=== PATIENT | male | born 1975 | race Native Hawaiian/Other Pacific Islander ===

== ENCOUNTER 2017-07-26 22:23 | Inpatient (IN) | payer OTHER ==
[2017-07-26 23:33] LABS: Hematocrit 43.2 % (35.5-45.6); Hemoglobin 14.7 gm/dl (11.8-15.2); Mean Corpuscular HGB Conc 34 % (32-34); Mean Corpuscular Hemoglobin 30 pg (28-32); Mean Corpuscular Volume 88 fl (84-94); Platelet Count 210 K/mm3 (140-440); Red Blood Count 4.89 M/mm3 (3.65-5.03); Red Cell Distribution Width 12.3 % (13.2-15.2); White Blood Count 13.9 K/mm3 (4.5-11.0)
[2017-07-26 23:48] LABS: Anion Gap 20 mmol/L; BUN/Creatinine Ratio 23; Blood Urea Nitrogen 21 mg/dL (9-20); Calcium 9.1 mg/dL (8.4-10.2); Carbon Dioxide 23 mmol/L (22-30); Chloride 98.8 mmol/L (98-107); Glucose 128 mg/dL (75-100); Potassium 3.9 mmol/L (3.6-5.0); Sodium 138 mmol/L (137-145)
[2017-07-27 01:51] LABS: Basophils % (Manual) 0 % (0.0-1.8); Blastocytes % (Manual) 0 %; Eosinophils % (Manual) 0 % (0.0-4.3)
[2017-07-27 01:52] LABS: Anisocytosis Few; Diff Status Complete
--- NOTE | 2017-07-27 09:35 | Emergency Department Report ---
ED Chest Pain HPI - General Chief Complaint: Chest Pain Stated Complaint: CHEST PAIN Time Seen by Provider: 07/27/17 08:44 Source: patient Mode of arrival: Ambulatory Limitations: No Limitations - History of Present Illness Initial Comments: 42-year-old male presents emergency Department with complaint of chest pain. Patient started having chest pressure yesterday radiated to his left shoulder and he was short of breath with chest pain. He has had pain like this once before. Hisfamily history of MA. He has no other medical problems. He does not smoke and not use any illicit drugs. -: Sudden Onset: during rest, during exertion Pain Location: substernal Pain Radiation: LUE Severity: severe Severity scale (0 -10): 7 Quality: tightness Improves With: nothing Worsens With: nothing re: dyspnea. denies: nausea, vomting, diaphoresis, sense of impending doom Other Symptoms: denies: cough, fever, syncope, rash, acid taste in mouth, leg swelling, palpitations, burping - Related Data Home Medications Medication Instructions Recorded Confirmed Last Taken No Known Home Medications [No 07/27/17 07/27/17 Unknown Reported Home Medications] Allergies Allergy/AdvReac Type Severity Reaction Status Date / Time No Known Allergies Allergy Unverified 07/26/17 22:39 Heart Score - HEART Score History: Highly suspicious EKG: Non-specific Age: < 45 Risk factors: No known risk factors Troponin: < normal limit HEART Score: 3 - Critical Actions Critical Actions: 0-3 pts:0.9-1.7%risk of adverse cardiac event.Candidate for discharge ED Review of Systems ROS: Stated complaint: CHEST PAIN Other details as noted in HPI Comment: All other systems reviewed and negative Constitutional: denies: chills, fever ENT: denies: ear pain, throat pain Respiratory: denies: cough, shortness of breath, wheezing Cardiovascular: denies: chest pain, palpitations Endocrine: no symptoms reported Gastrointestinal: denies: abdominal pain, nausea, diarrhea Genitourinary: denies: urgency, dysuria Musculoskeletal: denies: back pain, joint swelling, arthralgia Skin: denies: rash, lesions Neurological: denies: headache, weakness, paresthesias Psychiatric: denies: anxiety, depression Hematological/Lymphatic: denies: easy bleeding, easy bruising ED Past Medical Hx - Past Medical History Previous Medical History?: No - Surgical History Past Surgical History?: No - Family History Family history: no significant - Social History Smoking Status: Never Smoker Substance Use Type: Alcohol - Medications Home Medications: Home Medications Medication Instructions Recorded Confirmed Last Taken Type No Known Home Medications [No 07/27/17 07/27/17 Unknown History Reported Home Medications] ED Physical Exam - General Limitations: No Limitations General appearance: alert, in no apparent distress - Head Head exam: Present: atraumatic, normocephalic - Eye Eye exam: Present: normal appearance. Absent: scleral icterus, conjunctival injection - ENT ENT exam: Present: mucous membranes moist - Neck Neck exam: Absent: meningismus, lymphadenopathy - Respiratory Respiratory exam: Present: normal lung sounds bilaterally. Absent: respiratory distress, wheezes - Cardiovascular Cardiovascular Exam: Present: regular rate, normal rhythm, normal heart sounds. Absent: systolic murmur, diastolic murmur, rubs, gallop - GI/Abdominal GI/Abdominal exam: Present: soft, normal bowel sounds. Absent: distended, tenderness - Rectal Rectal exam: Present: deferred - Extremities Exam Extremities exam: Present: normal inspection - Back Exam Back exam: Present: normal inspection - Neurological Exam Neurological exam: Present: alert, oriented X3 - Psychiatric Psychiatric exam: Present: normal affect, normal mood - Skin Skin exam: Present: warm, dry, intact, normal color. Absent: rash ED Course Vital Signs 07/26/17 07/27/17 07/27/17 22:33 05:24 08:52 Temperature 98.6 F 98.1 F 98.7 F Pulse Rate 117 H 68 66 Respiratory 18 17 Rate Blood Pressure 143/75 130/72 Blood Pressure 139/72 [Left] O2 Sat by Pulse 99 98 98 Oximetry 07/27/17 08:56 Temperature Pulse Rate Respiratory 17 Rate Blood Pressure Blood Pressure [Left] O2 Sat by Pulse 99 Oximetry ED Medical Decision Making - Lab Data Result diagrams: 07/26/17 23:18 07/26/17 23:18 Laboratory Results - last 24 hr 07/26/17 07/26/17 07/27/17 23:18 23:18 02:22 WBC 13.9 H RBC 4.89 Hgb 14.7 Hct 43.2 MCV 88 MCH 30 MCHC 34 RDW 12.3 L Plt Count 210 Add Manual Diff Complete Total Counted 100 Seg Neuts % (Manual) 75.0 H Band Neutrophils % 0 Lymphocytes % (Manual) 13.0 L Reactive Lymphs % (Man) 0 Monocytes % (Manual) 12.0 H Eosinophils % (Manual) 0 Basophils % (Manual) 0 Metamyelocytes % 0 Myelocytes % 0 Promyelocytes % 0 Blast Cells % 0 Nucleated RBC % Not Reportable Seg Neutrophils # Man 10.4 H Band Neutrophils # 0.0 Lymphocytes # (Manual) 1.8 Abs React Lymphs (Man) 0.0 Monocytes # (Manual) 1.7 H Eosinophils # (Manual) 0.0 Basophils # (Manual) 0.0 Metamyelocytes # 0.0 Myelocytes # 0.0 Promyelocytes # 0.0 Blast Cells # 0.0 WBC Morphology Not Reportable Hypersegmented Neuts Not Reportable Hyposegmented Neuts Not Reportable Hypogranular Neuts Not Reportable Smudge Cells Not Reportable Toxic Granulation Not Reportable Toxic Vacuolation Not Reportable Dohle Bodies Not Reportable Pelger-Huet Anomaly Not Reportable Binh Rods Not Reportable Platelet Estimate Appears normal Clumped Platelets Not Reportable Plt Clumps, EDTA Not Reportable Large Platelets Not Reportable Giant Platelets Not Reportable Platelet Satelliting Not Reportable Plt Morphology Comment Not Reportable RBC Morphology Not Reportable Dimorphic RBCs Not Reportable Polychromasia Not Reportable Hypochromasia Not Reportable Poikilocytosis Not Reportable Anisocytosis Few Microcytosis Not Reportable Macrocytosis Not Reportable Spherocytes Not Reportable Pappenheimer Bodies Not Reportable Sickle Cells Not Reportable Target Cells Not Reportable Tear Drop Cells Not Reportable Ovalocytes Not Reportable Helmet Cells Not Reportable Kc-[place] Bodies Not Reportable [place] Rings Not Reportable [place] Cells Not Reportable Bite Cells Not Reportable Crenated Cell Not Reportable Elliptocytes Not Reportable Acanthocytes (Spur) Not Reportable Rouleaux Not Reportable Hemoglobin C Crystals Not Reportable Schistocytes Not Reportable Malaria parasites Not Reportable Hector Bodies Not Reportable Hem Pathologist Commnt No Sodium 138 Potassium 3.9 Chloride 98.8 Carbon Dioxide 23 Anion Gap 20 BUN 21 H Creatinine 0.9 Estimated GFR > 60 BUN/Creatinine Ratio 23 Glucose 128 H Calcium 9.1 Troponin T < 0.010 < 0.010 07/27/17 04:31 WBC RBC Hgb Hct MCV MCH MCHC RDW Plt Count Add Manual Diff Total Counted Seg Neuts % (Manual) Band Neutrophils % Lymphocytes % (Manual) Reactive Lymphs % (Man) Monocytes % (Manual) Eosinophils % (Manual) Basophils % (Manual) Metamyelocytes % Myelocytes % Promyelocytes % Blast Cells % Nucleated RBC % Seg Neutrophils # Man Band Neutrophils # Lymphocytes # (Manual) Abs React Lymphs (Man) Monocytes # (Manual) Eosinophils # (Manual) Basophils # (Manual) Metamyelocytes # Myelocytes # Promyelocytes # Blast Cells # WBC Morphology Hypersegmented Neuts Hyposegmented Neuts Hypogranular Neuts Smudge Cells Toxic Granulation Toxic Vacuolation Dohle Bodies Pelger-Huet Anomaly Binh Rods Platelet Estimate Clumped Platelets Plt Clumps, EDTA Large Platelets Giant Platelets Platelet Satelliting Plt Morphology Comment RBC Morphology Dimorphic RBCs Polychromasia Hypochromasia Poikilocytosis Anisocytosis Microcytosis Macrocytosis Spherocytes Pappenheimer Bodies Sickle Cells Target Cells Tear Drop Cells Ovalocytes Helmet Cells Kc-[place] Bodies [place] Rings Neo Cells Bite Cells Crenated Cell Elliptocytes Acanthocytes (Spur) Rouleaux Hemoglobin C Crystals Schistocytes Malaria parasites Hector Bodies Hem Pathologist Commnt Sodium Potassium Chloride Carbon Dioxide Anion Gap BUN Creatinine Estimated GFR BUN/Creatinine Ratio Glucose Calcium Troponin T < 0.010 - EKG Data 07/27/17 09:33 Sinus tachycardia rate of 118 normal axis normal intervals he has T-wave inversion in lead 3 and in V5 and V6. - Medical Decision Making 42-year-old male here with chest pain. Patient had pressure and felt his heart racing while he was walking. Had some trouble catching his breath. His EKG shows sinus tachycardia with lateral and inferior T-wave inversions. He has no history of anything like this in the past. Plan add on a d-dimer and will likely admit for further stress testing. Given her history plan admit the patient to IMS service. Portions of this chart were dictated with dictation software. There may be dictation errors contained within this note. Critical care attestation.: If time is entered above; I have spent that time in minutes in the direct care of this critically ill patient, excluding procedure time. ED Disposition Clinical Impression: Chest pain Disposition: OP ADMIT IP TO THIS HOSP Is pt being admited?: Yes Condition: Stable Instructions: Chest Pain (ED) Referrals: PRIMARY CARE,MD [Primary Care Provider] - 3-5 Days
--- NOTE | 2017-07-27 09:59 | XRay Report ---
CHEST ONE VIEW INDICATION: Chest pain. COMPARISON: None similar at this institution. FINDINGS: Portable, single, frontal chest radiograph demonstrates normal cardiomediastinal silhouette. Clear lungs. Unremarkable bones. Extrinsic EKG leads. CONCLUSION: No acute disease in the chest. Thank you for the opportunity to participate in this patient's care.
[2017-07-27] MEDS ORDERED: TYLENOL PO PRN (11:16)
[2017-07-27] MEDS ORDERED: MORPHINE IV PRN (11:16)
[2017-07-27] MEDS ORDERED: DULCOLAX PR PRN (11:16)
[2017-07-27] MEDS ORDERED: NITROSTAT SL PRN (11:18)
--- NOTE | 2017-07-27 11:21 | Progress Note ---
Hospitalist Physical - Constitutional Vitals: Temp Pulse Resp BP Pulse Ox 98.7 F 66 17 139/72 99 07/27/17 08:52 07/27/17 08:52 07/27/17 08:56 07/27/17 08:52 07/27/17 08:56 Results - Labs CBC & Chem 7: 07/26/17 23:18 07/26/17 23:18 Labs: Laboratory Last Values WBC 13.9 K/mm3 (4.5-11.0) H 07/26/17 23:18 RBC 4.89 M/mm3 (3.65-5.03) 07/26/17 23:18 Hgb 14.7 gm/dl (11.8-15.2) 07/26/17 23:18 Hct 43.2 % (35.5-45.6) 07/26/17 23:18 MCV 88 fl (84-94) 07/26/17 23:18 MCH 30 pg (28-32) 07/26/17 23:18 MCHC 34 % (32-34) 07/26/17 23:18 RDW 12.3 % (13.2-15.2) L 07/26/17 23:18 Plt Count 210 K/mm3 (140-440) 07/26/17 23:18 Add Manual Diff Complete 07/26/17 23:18 Total Counted 100 07/26/17 23:18 Seg Neuts % (Manual) 75.0 % (40.0-70.0) H 07/26/17 23:18 Band Neutrophils % 0 % 07/26/17 23:18 Lymphocytes % (Manual) 13.0 % (13.4-35.0) L 07/26/17 23:18 Reactive Lymphs % (Man) 0 % 07/26/17 23:18 Monocytes % (Manual) 12.0 % (0.0-7.3) H 07/26/17 23:18 Eosinophils % (Manual) 0 % (0.0-4.3) 07/26/17 23:18 Basophils % (Manual) 0 % (0.0-1.8) 07/26/17 23:18 Metamyelocytes % 0 % 07/26/17 23:18 Myelocytes % 0 % 07/26/17 23:18 Promyelocytes % 0 % 07/26/17 23:18 Blast Cells % 0 % 07/26/17 23:18 Nucleated RBC % Not Reportable 07/26/17 23:18 Seg Neutrophils # Man 10.4 K/mm3 (1.8-7.7) H 07/26/17 23:18 Band Neutrophils # 0.0 K/mm3 07/26/17 23:18 Lymphocytes # (Manual) 1.8 K/mm3 (1.2-5.4) 07/26/17 23:18 Abs React Lymphs (Man) 0.0 K/mm3 07/26/17 23:18 Monocytes # (Manual) 1.7 K/mm3 (0.0-0.8) H 07/26/17 23:18 Eosinophils # (Manual) 0.0 K/mm3 (0.0-0.4) 07/26/17 23:18 Basophils # (Manual) 0.0 K/mm3 (0.0-0.1) 07/26/17 23:18 Metamyelocytes # 0.0 K/mm3 07/26/17 23:18 Myelocytes # 0.0 K/mm3 07/26/17 23:18 Promyelocytes # 0.0 K/mm3 07/26/17 23:18 Blast Cells # 0.0 K/mm3 07/26/17 23:18 WBC Morphology Not Reportable 07/26/17 23:18 Hypersegmented Neuts Not Reportable 07/26/17 23:18 Hyposegmented Neuts Not Reportable 07/26/17 23:18 Hypogranular Neuts Not Reportable 07/26/17 23:18 Smudge Cells Not Reportable 07/26/17 23:18 Toxic Granulation Not Reportable 07/26/17 23:18 Toxic Vacuolation Not Reportable 07/26/17 23:18 Dohle Bodies Not Reportable 07/26/17 23:18 Pelger-Huet Anomaly Not Reportable 07/26/17 23:18 Binh Rods Not Reportable 07/26/17 23:18 Platelet Estimate Appears normal 07/26/17 23:18 Clumped Platelets Not Reportable 07/26/17 23:18 Plt Clumps, EDTA Not Reportable 07/26/17 23:18 Large Platelets Not Reportable 07/26/17 23:18 Giant Platelets Not Reportable 07/26/17 23:18 Platelet Satelliting Not Reportable 07/26/17 23:18 Plt Morphology Comment Not Reportable 07/26/17 23:18 RBC Morphology Not Reportable 07/26/17 23:18 Dimorphic RBCs Not Reportable 07/26/17 23:18 Polychromasia Not Reportable 07/26/17 23:18 Hypochromasia Not Reportable 07/26/17 23:18 Poikilocytosis Not Reportable 07/26/17 23:18 Anisocytosis Few 07/26/17 23:18 Microcytosis Not Reportable 07/26/17 23:18 Macrocytosis Not Reportable 07/26/17 23:18 Spherocytes Not Reportable 07/26/17 23:18 Pappenheimer Bodies Not Reportable 07/26/17 23:18 Sickle Cells Not Reportable 07/26/17 23:18 Target Cells Not Reportable 07/26/17 23:18 Tear Drop Cells Not Reportable 07/26/17 23:18 Ovalocytes Not Reportable 07/26/17 23:18 Helmet Cells Not Reportable 07/26/17 23:18 Kc-[place] Bodies Not Reportable 07/26/17 23:18 [place] Rings Not Reportable 07/26/17 23:18 Neo Cells Not Reportable 07/26/17 23:18 Bite Cells Not Reportable 07/26/17 23:18 Crenated Cell Not Reportable 07/26/17 23:18 Elliptocytes Not Reportable 07/26/17 23:18 Acanthocytes (Spur) Not Reportable 07/26/17 23:18 Rouleaux Not Reportable 07/26/17 23:18 Hemoglobin C Crystals Not Reportable 07/26/17 23:18 Schistocytes Not Reportable 07/26/17 23:18 Malaria parasites Not Reportable 07/26/17 23:18 Hector Bodies Not Reportable 07/26/17 23:18 Hem Pathologist Commnt No 07/26/17 23:18 D-Dimer 188.20 ng/mlDDU (0-234) 07/27/17 09:40 Sodium 138 mmol/L (137-145) 07/26/17 23:18 Potassium 3.9 mmol/L (3.6-5.0) 07/26/17 23:18 Chloride 98.8 mmol/L (98-107) 07/26/17 23:18 Carbon Dioxide 23 mmol/L (22-30) 07/26/17 23:18 Anion Gap 20 mmol/L 07/26/17 23:18 BUN 21 mg/dL (9-20) H 07/26/17 23:18 Creatinine 0.9 mg/dL (0.8-1.5) 07/26/17 23:18 Estimated GFR > 60 ml/min 07/26/17 23:18 BUN/Creatinine Ratio 23 % 07/26/17 23:18 Glucose 128 mg/dL (75-100) H 07/26/17 23:18 Calcium 9.1 mg/dL (8.4-10.2) 07/26/17 23:18 Troponin T < 0.010 ng/mL (0.00-0.029) 07/27/17 04:31
--- NOTE | 2017-07-27 11:27 | History and Physical Report ---
History of Present Illness Date of examination: 07/27/17 Date of admission: 07/27/2017 Chief complaint: Chest pain History of present illness: Patient is a 42-year-old male with no past medical history, who presented to the Emergency Department complaining of Midsternal chest pain. He states that the pain began yesterday around 08:00PM, after eating dinner, constant midsternal chest pain. Patient described the pain as, sharp, pressure and squeezing in his chest; radiated to his left shoulder. The sharp pain lasted around 1 minute. There is no aggravating or reliving factors. Patient took Losartan 50 mg form his [id number] without improvement.The painful episodes did not increase in intensity or severity during this time. Patient rated his pain level 7/10. He denies nausea, vomiting during these episodes of pain. He experienced shortness of breath, heart palpations and dizziness nausea, and diaphoresis during these episodes of pain. He denies vomiting. He has never had chest pain in the past. He continued to have several episodes of the pain throughout the morning, he decided to come to the emergency department. Patient has no chest pain before and he denies smoking. Past History Past Medical History: No medical history Past Surgical History: No surgical history Social history: denies: smoking, alcohol abuse, prescription drug abuse Family history: CAD, hypertension Medications and Allergies Allergies Allergy/AdvReac Type Severity Reaction Status Date / Time No Known Allergies Allergy Unverified 07/26/17 22:39 Home Medications Medication Instructions Recorded Confirmed Last Taken Type No Known Home Medications [No 07/27/17 07/27/17 Unknown History Reported Home Medications] Active Meds: Active Medications Acetaminophen (Tylenol) 650 mg PO Q4H PRN PRN Reason: Pain MILD(1-3)/Fever >100.5/WYATT Aspirin (Aspirin) 325 mg PO DAILY PRECIOUS Bisacodyl (Dulcolax) 10 mg MS QDAY PRN PRN Reason: Constipation unrelieved by MOM Enoxaparin Sodium (Lovenox) 40 mg SUB-Q QDAY [facility] Morphine Sulfate (Morphine) 2 mg IV Q4H PRN PRN Reason: Pain, Moderate (4-6) Nitroglycerin (Nitrostat) 0.4 mg SL .Q5MIN PRN PRN Reason: Chest Pain Review of Systems Constitutional: no weight gain, no fever Ears, nose, mouth and throat: no ear pain, no ear discharge, no tinnitis, no decreased hearing, no nose pain Cardiovascular: chest pain, lightheadedness, shortness of breath Respiratory: shortness of breath Gastrointestinal: nausea, no vomiting, no diarrhea Genitourinary Male: no flank pain, no discharge, no urinary frequency, no urinary hesitancy, no nocturia Rectal: no incontinence, no bleeding Musculoskeletal: no neck pain, no shooting arm pain, no arm numbness/tingling Integumentary: no sores, no wounds, no jaundice Neurological: no tingling, no seizures, no syncope, no tremors Psychiatric: no sleep disturbances, no insomnia, no hypersomnia, no change in appetite, no change in libido Endocrine: no polyuria, no nocturia, no excessive sweating Hematologic/Lymphatic: no easy bruising, no easy bleeding Allergic/Immunologic: no urticaria, no allergic rhinitis Exam - Constitutional Vitals: Temp Pulse Resp BP Pulse Ox 98.7 F 66 17 139/72 99 07/27/17 08:52 07/27/17 08:52 07/27/17 08:56 07/27/17 08:52 07/27/17 08:56 General appearance: Present: no acute distress - EENT Eyes: Present: PERRL ENT: hearing intact - Neck Neck: Present: supple - Respiratory Respiratory effort: normal Respiratory: bilateral: CTA - Cardiovascular Rhythm: regular Heart Sounds: Present: S1 & S2 Peripheral Pulses: within normal limits - Abdominal General gastrointestinal: Present: soft, non-tender Male genitourinary: Present: deferred - Rectal Rectal Exam: deferred - Integumentary Integumentary: Present: clear, warm, dry - Musculoskeletal Musculoskeletal: strength equal bilaterally - Psychiatric Psychiatric: appropriate mood/affect - Neurologic Neurologic: CNII-XII intact - Allied Health Allied health notes reviewed: nursing Results - Labs CBC & Chem 7: 07/26/17 23:18 07/26/17 23:18 Labs: Laboratory Last Values WBC 13.9 K/mm3 (4.5-11.0) H 07/26/17 23:18 RBC 4.89 M/mm3 (3.65-5.03) 07/26/17 23:18 Hgb 14.7 gm/dl (11.8-15.2) 07/26/17 23:18 Hct 43.2 % (35.5-45.6) 07/26/17 23:18 MCV 88 fl (84-94) 07/26/17 23:18 MCH 30 pg (28-32) 07/26/17 23:18 MCHC 34 % (32-34) 07/26/17 23:18 RDW 12.3 % (13.2-15.2) L 07/26/17 23:18 Plt Count 210 K/mm3 (140-440) 07/26/17 23:18 Add Manual Diff Complete 07/26/17 23:18 Total Counted 100 07/26/17 23:18 Seg Neuts % (Manual) 75.0 % (40.0-70.0) H 07/26/17 23:18 Band Neutrophils % 0 % 07/26/17 23:18 Lymphocytes % (Manual) 13.0 % (13.4-35.0) L 07/26/17 23:18 Reactive Lymphs % (Man) 0 % 07/26/17 23:18 Monocytes % (Manual) 12.0 % (0.0-7.3) H 07/26/17 23:18 Eosinophils % (Manual) 0 % (0.0-4.3) 07/26/17 23:18 Basophils % (Manual) 0 % (0.0-1.8) 07/26/17 23:18 Metamyelocytes % 0 % 07/26/17 23:18 Myelocytes % 0 % 07/26/17 23:18 Promyelocytes % 0 % 07/26/17 23:18 Blast Cells % 0 % 07/26/17 23:18 Nucleated RBC % Not Reportable 07/26/17 23:18 Seg Neutrophils # Man 10.4 K/mm3 (1.8-7.7) H 07/26/17 23:18 Band Neutrophils # 0.0 K/mm3 07/26/17 23:18 Lymphocytes # (Manual) 1.8 K/mm3 (1.2-5.4) 07/26/17 23:18 Abs React Lymphs (Man) 0.0 K/mm3 07/26/17 23:18 Monocytes # (Manual) 1.7 K/mm3 (0.0-0.8) H 07/26/17 23:18 Eosinophils # (Manual) 0.0 K/mm3 (0.0-0.4) 07/26/17 23:18 Basophils # (Manual) 0.0 K/mm3 (0.0-0.1) 07/26/17 23:18 Metamyelocytes # 0.0 K/mm3 07/26/17 23:18 Myelocytes # 0.0 K/mm3 07/26/17 23:18 Promyelocytes # 0.0 K/mm3 07/26/17 23:18 Blast Cells # 0.0 K/mm3 07/26/17 23:18 WBC Morphology Not Reportable 07/26/17 23:18 Hypersegmented Neuts Not Reportable 07/26/17 23:18 Hyposegmented Neuts Not Reportable 07/26/17 23:18 Hypogranular Neuts Not Reportable 07/26/17 23:18 Smudge Cells Not Reportable 07/26/17 23:18 Toxic Granulation Not Reportable 07/26/17 23:18 Toxic Vacuolation Not Reportable 07/26/17 23:18 Dohle Bodies Not Reportable 07/26/17 23:18 Pelger-Huet Anomaly Not Reportable 07/26/17 23:18 Binh Rods Not Reportable 07/26/17 23:18 Platelet Estimate Appears normal 07/26/17 23:18 Clumped Platelets Not Reportable 07/26/17 23:18 Plt Clumps, EDTA Not Reportable 07/26/17 23:18 Large Platelets Not Reportable 07/26/17 23:18 Giant Platelets Not Reportable 07/26/17 23:18 Platelet Satelliting Not Reportable 07/26/17 23:18 Plt Morphology Comment Not Reportable 07/26/17 23:18 RBC Morphology Not Reportable 07/26/17 23:18 Dimorphic RBCs Not Reportable 07/26/17 23:18 Polychromasia Not Reportable 07/26/17 23:18 Hypochromasia Not Reportable 07/26/17 23:18 Poikilocytosis Not Reportable 07/26/17 23:18 Anisocytosis Few 07/26/17 23:18 Microcytosis Not Reportable 07/26/17 23:18 Macrocytosis Not Reportable 07/26/17 23:18 Spherocytes Not Reportable 07/26/17 23:18 Pappenheimer Bodies Not Reportable 07/26/17 23:18 Sickle Cells Not Reportable 07/26/17 23:18 Target Cells Not Reportable 07/26/17 23:18 Tear Drop Cells Not Reportable 07/26/17 23:18 Ovalocytes Not Reportable 07/26/17 23:18 Helmet Cells Not Reportable 07/26/17 23:18 Kc-[place] Bodies Not Reportable 07/26/17 23:18 [place] Rings Not Reportable 07/26/17 23:18 [place] Cells Not Reportable 07/26/17 23:18 Bite Cells Not Reportable 07/26/17 23:18 Crenated Cell Not Reportable 07/26/17 23:18 Elliptocytes Not Reportable 07/26/17 23:18 Acanthocytes (Spur) Not Reportable 07/26/17 23:18 Rouleaux Not Reportable 07/26/17 23:18 Hemoglobin C Crystals Not Reportable 07/26/17 23:18 Schistocytes Not Reportable 07/26/17 23:18 Malaria parasites Not Reportable 07/26/17 23:18 Hector Bodies Not Reportable 07/26/17 23:18 Hem Pathologist Commnt No 07/26/17 23:18 D-Dimer 188.20 ng/mlDDU (0-234) 07/27/17 09:40 Sodium 138 mmol/L (137-145) 07/26/17 23:18 Potassium 3.9 mmol/L (3.6-5.0) 07/26/17 23:18 Chloride 98.8 mmol/L (98-107) 07/26/17 23:18 Carbon Dioxide 23 mmol/L (22-30) 07/26/17 23:18 Anion Gap 20 mmol/L 07/26/17 23:18 BUN 21 mg/dL (9-20) H 07/26/17 23:18 Creatinine 0.9 mg/dL (0.8-1.5) 07/26/17 23:18 Estimated GFR > 60 ml/min 07/26/17 23:18 BUN/Creatinine Ratio 23 % 07/26/17 23:18 Glucose 128 mg/dL (75-100) H 07/26/17 23:18 Calcium 9.1 mg/dL (8.4-10.2) 07/26/17 23:18 Troponin T < 0.010 ng/mL (0.00-0.029) 07/27/17 04:31 - Imaging and Cardiology Chest x-ray: image reviewed (unremarkable ) Assessment and Plan Assessment and plan: Chest Pain We will admit to telemetry floor. EKG normal sinus rate [address] elevation or T-wave inversion. Negative cardiac enzyme X3 Start on aspirin Nitroglycerin when necessary Morphine ordered for pain Stress test ordered. Cardiology evaluation Leukocytosis reactive; no evidence of infection We will repeat CBC Closely monitor Increased in blood pressure Most likely stress reaction Low sodium diet Closely monitor blood pressure DVT prophylaxis on Lovenox Advance Directives: Yes VTE prophylaxis?: Chemical Contraindication Mechanical VTE Prophylaxis: Treatment Not Indicated Plan of care discussed with patient/family: Yes
[2017-07-27 22:06] LABS: Bilirubin,Urine NEG (Negative); Blood,Urine NEG (Negative); Ketones,Urine NEG (Negative); Leukocyte Esterase,Urine NEG (Negative); Mucus,Urine FEW /HPF; Nitrite,Urine NEG (Negative); Protein,Urine <15 mg/dL mg/dL (Negative)
[2017-07-28 06:40] LABS: Basophils % (Auto) 0.6 % (0.0-1.8); Eosinophils % (Auto) 8.4 % (0.0-4.3); Hematocrit 41.2 % (35.5-45.6); Hemoglobin 14.7 gm/dl (11.8-15.2); Mean Corpuscular HGB Conc 36 % (32-34); Mean Corpuscular Hemoglobin 31 pg (28-32); Mean Corpuscular Volume 88 fl (84-94); Platelet Count 178 K/mm3 (140-440); Red Blood Count 4.71 M/mm3 (3.65-5.03); Red Cell Distribution Width 12.4 % (13.2-15.2); White Blood Count 8.2 K/mm3 (4.5-11.0)
[2017-07-28 07:54] LABS: Anion Gap 14 mmol/L; BUN/Creatinine Ratio 18; Blood Urea Nitrogen 16 mg/dL (9-20); Carbon Dioxide 29 mmol/L (22-30); Chloride 104.4 mmol/L (98-107); Cholesterol 214 mg/dL (50-199); Glucose 92 mg/dL (75-100); HDL Cholesterol 46 mg/dL (40-59); LDL Cholesterol,Direct 117 mg/dL (50-130); Sodium 142 mmol/L (137-145); Triglycerides 259 mg/dL (2-149)
[2017-07-28] MEDS ORDERED: LOVENOX SUB-Q SCH (10:00)
[2017-07-28] MEDS ORDERED: ASPIRIN PO SCH (10:00)
--- NOTE | 2017-07-28 11:51 | Discharge Summary ---
Providers - Providers Date of Admission: 07/27/17 11:16 Date of discharge: 07/28/17 Attending physician: RIA BRICENO Primary care physician: BROOMCORN SORTER Hospitalization Reason for admission: Chest pain Condition: Good Hospital course: Patient is a 42-year-old male with no past medical history, who presented to the Emergency Department complaining of Midsternal chest pain. He states that the pain began yesterday around 08:00PM, after eating dinner, constant midsternal chest pain. Patient described the pain as, sharp, pressure and squeezing in his chest; radiated to his left shoulder.Patient was diagnosed with chest pain, increased in blood pressure and leukocytosis. Patient presented with atypical chest pain, ACS was ruled out, stress test normal MPI, negative cardiac enzymes, ECGs shows normal sinus rythm, CXR. Patient chest pain probably from musculoskeletal or gastritis. He was treated with IV fluid hydration and antiacid medications. patient discharge with antiacid, antlip agents. Patient is clinically improved and no chest pain at present time. Patient advised to follow-up with her primary care provider. Discharge Diagnosed Chest Pain due to Costochondritis Hyperlipidemia Disposition: DC- TO HOME OR SELFCARE Core Measure Documentation - Palliative Care Palliative Care/ Comfort Measures: Not Applicable - Core Measures Any of the following diagnoses?: none Exam - Constitutional Vitals: Temp Pulse Resp BP Pulse Ox 97.7 F 67 18 110/75 100 07/28/17 04:35 07/28/17 04:54 07/28/17 04:35 07/28/17 04:35 07/28/17 04:35 General appearance: Present: no acute distress - EENT Eyes: Present: PERRL ENT: hearing intact - Neck Neck: Present: supple - Respiratory Respiratory: bilateral: CTA - Cardiovascular Rhythm: regular Heart Sounds: Present: S1 & S2 - Abdominal General gastrointestinal: Present: soft, non-tender Male genitourinary: Present: deferred - Rectal Rectal Exam: deferred - Integumentary Integumentary: Present: clear, warm, dry - Musculoskeletal Musculoskeletal: strength equal bilaterally - Psychiatric Psychiatric: appropriate mood/affect - Neurologic Neurologic: CNII-XII intact - Allied Health Allied health notes reviewed: nursing Plan Weight Bearing Status: Weight Bear as Tolerated Diet: low fat, low cholesterol, low salt Follow up with: [facility] [Provider Group] - 7 Days PRIMARY CARE, [Primary Care Provider] - 3-5 Days Prescriptions: AtorvaSTATin [Lipitor] 10 mg PO QHS #30 tablet AtorvaSTATin [Lipitor] 10 mg PO QHS 30 Days Aspirin 81 mg PO DAILY #30 tab.chew Aspirin 81 mg PO DAILY 30 Days Famotidine [Pepcid] 20 mg PO BID 30 Days
[2017-07-28] MEDS ORDERED: Fluarix Quad 2017-2018(36 MOS+) IM ONE (12:00)
--- NOTE | 2017-07-28 17:33 | Treadmill Report ---
This is a nuclear perfusion study. REASON FOR STUDY: Chest pain. READING PHYSICIAN: Ghassan Damian MD IMAGING PROTOCOL: Single isotope used. The patient received 10 mCi of Technetium 99m Tetrofosmin for resting image and 28 mCi of Technetium 99m Tetrofosmin for stress imaging. The imaging for the whole procedure was completed 30-90 minutes following the initial injection of Technetium 99m tetrofosmin. The SPECT imaging in the 180 degree arc was performed in the right anterior oblique projection. Computerized reconstruction of the images was performed for analysis. IMAGING RESULTS: Normal cavity size from stress to rest. Normal distribution of radionuclide in the anterior, inferior, septal, and apical regions. SUMMARY: 1. Negative treadmill EKG. The patient exercised on Ulises protocol for 10 minutes and 15 seconds. 2. Good exercise capacity. 3. No exaggerated BP response to exercise. 4. Normal rest and stress myocardial perfusion scan. No significant stress ischemia. No wall motion abnormality. Gated SPECT EF of 54%. JOB# [id number] MI/ANDI
[2017-07-28 18:55] VITALS: BP 139/82
== END 2017-07-28 14:04 | disposition home or self-care (01) | DRG 206 ==
LOC: ED 22:23 → 4A 07-27 11:16
PROVIDERS: ADMIT Internal Medicine; ATTEND Internal Medicine
PROC: 3E0234Z Introduction of Serum, Toxoid and Vaccine into Muscle, Percutaneous Approach (ICD-10-PCS; principal; 2017-07-28)
DX: M94.0 Chondrocostal junction syndrome [Tietze] (principal); E78.5 Hyperlipidemia, unspecified; Z23 Encounter for immunization
CPT/HCPCS: 36415; 71010; 78452; 80048; 80061; 81001; 84484; 85007; 85025; 85379; 90686; 93005; 93010; 93017; 96372; 96374; A9502; J1650; J2270